=== PATIENT | male | born 1945 | race Caucasian/White ===

== ENCOUNTER 2018-03-14 14:24 | Inpatient (IN) | payer MEDICARE, BC ==
[2018-03-14] VITALS (47 sets, daily range): BP systolic 103–109; BP diastolic 57–66; PULSE 67–109; TEMP 97.8–99.6; O2SAT 93–96
[~2018-03-14] VITALS: Ht 180.3 cm; Wt 125.2 kg
[2018-03-14 15:05] LABS: BASO # 0.1 (0.0-0.2); BASO % 1.2 % (0.0-2.0); GRAN # 6.6 (1.4-6.5); HEMATOCRIT 41.6 % (42.0-52.0); HEMOGLOBIN 13.5 g/dl (13.5-18.0); LYMPH # 0.6 (1.2-3.4); LYMPH % 7.6 % (20.0-51.0); MEAN CELL VOLUME 89 fl (80.0-100.0); MEAN CORPUSCULAR HEMOGLOBIN 29 pg (27.0-31.0); MEAN CORPUSCULAR HGB CONC 33 g/dl (33.0-37.0); MEAN PLATELET VOLUME 12.1 fl (7.4-10.4); MONO # 0.5 (0.1-0.6); MONO % 5.9 % (1.7-9.3); PLATELET COUNT 135 K/mm3 (130-400); RED BLOOD COUNT 4.66 M/mm3 (4.20-5.60); REDCELL DISTRIBUTION WIDTH-CV 14.6 % (11.5-14.5)
[2018-03-14 15:16] LABS: ALBUMIN 3.4 gm/dL (3.5-5.0); BILIRUBIN,TOTAL 1.3 mg/dL (0.0-1.0); CALCIUM 8.4 mg/dL (8.4-10.2); CREATININE, serum 2.37 mg/dL (0.66-1.25); POTASSIUM 4.4 mmol/L (3.4-5.0); TOTAL PROTEIN 6.4 gm/dL (6.4-8.2)
[2018-03-14 15:17] LABS: ARTERIAL BLD GAS O2 SATURATION 94.4 % (92-100); ARTERIAL BLD GAS TCO2 CT 21.3; ARTERIAL BLOOD GAS BASE EXCESS -4.9 (-2-2); ARTERIAL BLOOD GAS HCO3 20.2 meq/L (22-26); ARTERIAL BLOOD GAS PCO2 37.5 mmHg (35-45); ARTERIAL BLOOD GAS PO2 77.6 mmHg (80-100); ARTERIAL BLOOD GAS pH 7.35 (7.35-7.45)
[2018-03-14 15:21] LABS: INR 1.5 (0.8-3.0); PROTHROMBIN TIME 17.1 SECONDS (9.7-12.8)
[2018-03-14 15:29] LABS: TROPONIN-I 0.043 ng/mL (0.000-0.034)
[2018-03-14] MEDS ORDERED: GLUCOTROL XL10 MG PO (15:33)
[2018-03-14] MEDS ORDERED: K-DUR 10 MEQ T10 MEQ PO (15:33)
[2018-03-14] MEDS ORDERED: GLUCOPHAGE1000 MG PO (15:33)
[2018-03-14] MEDS ORDERED: FLOMAX 0.40.4 MG/CAP PO (15:34)
[2018-03-14] MEDS ORDERED: DIOVAN320 MG PO (15:34)
[2018-03-14] MEDS ORDERED: TOPROL XL100 MG PO (15:34)
[2018-03-14] MEDS ORDERED: CRESTOR 10MG10 MG PO (15:34)
[2018-03-14] MEDS ORDERED: METALAZONE (15:35)
[2018-03-14] MEDS ORDERED: MAG64 110 MG-181 ECT (15:36)
[2018-03-14] MEDS ORDERED: PRILOTC (15:36)
[2018-03-14] MEDS ORDERED: ASPIRIN 81M81 MG/TA2 PO (15:36)
[2018-03-14] MEDS ORDERED: NEURONTIN300 MG/CAP PO (15:37)
[2018-03-14] MEDS ORDERED: SINGULAIR 110 MG/TAB PO (15:37)
[2018-03-14] MEDS ORDERED: ADALAT CC60 MG PO (15:37)
[2018-03-14] MEDS ORDERED: TRADJENTA5 MG PO (17:35)
[2018-03-14 19:00] LABS: PARTIAL THROMBOPLASTIN TIME 36.5 SECONDS (26.0-37.0)
[2018-03-14 19:13] LABS: AMORPHOUS CRYSTAL Present /uL; MUCOUS Present /lpf; PH 5 (5-8); SQUAMOUS EPITHELIAL 0-2 /hpf; URINE APPEARANCE Cloudy; URINE BACTERIA None Seen /hpf; URINE BILIRUBIN Negative (NEGATIVE); URINE BLOOD Negative (NEGATIVE); URINE CALCIUM OXALATE CRYSTAL Present /hpf; URINE COLOR Amber; URINE GLUCOSE Negative (NEGATIVE); URINE KETONE Negative (NEGATIVE); URINE LEUKOCYTE ESTERASE Negative (NEGATIVE); URINE NITRATE Negative (NEGATIVE); URINE PROTEIN(semi-quant) 1+ (NEGATIVE); URINE UROBILINOGEN Negative (NEGATIVE)
[2018-03-14 19:30] LABS: COLLECTION METHOD CATHETER
[2018-03-14 19:59] LABS: THYROID STIMULATING HORMONE 3.27 uIU/mL (0.465-4.680)
--- NOTE | 2018-03-14 20:51 | NUR ---
Dr. Fallon at bedside to see patient. Will continue with cardizem at 10mg/hr. Aware of elevated troponin. New order for EKG in am and repeat troponin.
[2018-03-14 20:52] LABS: C-REACTIVE PROTEIN 49.7 mg/dL (0.0-0.9)
--- NOTE | 2018-03-14 20:52 | NUR ---
Hospitalist notified of elevated D-Dimer. On heparin drip. Will just continue to monitor at this time.
--- NOTE | 2018-03-14 23:48 | NUR ---
Spoke with hospitalist regarding central line placement. Will hold off unless patient becomes unstable. Also notified regarding low urine output. Creatinine is elevated. Ordered to just continue to monitor at this time.
[2018-03-15] VITALS (721 sets, daily range): BP systolic 91–113; BP diastolic 59–86; PULSE 58–98; TEMP 98.1–98.8; O2SAT 85–99
--- NOTE | 2018-03-15 02:05 | NUR ---
Bedding under paintient damp and discolored yellow. Crooks appears to be leaking. Baloon emptied and recieved 8 ml. Added 2ml to equal 10 ml. Attempted to re-adjust catheter tubing.
--- NOTE | 2018-03-15 02:40 | NUR ---
VENKATA Amaya from [facility] called regarding Cardizem drip. Decreased cardizem to 5 mg/hr due to occasional heart rate in the 50's and 60's.
--- NOTE | 2018-03-15 02:48 | NUR ---
Updated Dr. Holder regarding low urine output. Intstructed to bladder scan and await morning labs.
--- NOTE | 2018-03-15 03:30 | NUR ---
Bladder scanned; Showed greater than 83 in upper left quadrant. Abdomen soft. Crooks continuing to drain.
[2018-03-15 05:35] LABS: HEMATOCRIT 38.5 % (42.0-52.0); HEMOGLOBIN 12.6 g/dl (13.5-18.0); MEAN CELL VOLUME 90 fl (80.0-100.0); MEAN CORPUSCULAR HEMOGLOBIN 29 pg (27.0-31.0); MEAN CORPUSCULAR HGB CONC 33 g/dl (33.0-37.0); MEAN PLATELET VOLUME 12.6 fl (7.4-10.4); PLATELET COUNT 125 K/mm3 (130-400); RED BLOOD COUNT 4.29 M/mm3 (4.20-5.60); REDCELL DISTRIBUTION WIDTH-CV 14.4 % (11.5-14.5)
[2018-03-15 05:46] LABS: CALCIUM 7.5 mg/dL (8.4-10.2); CREATININE, serum 2.63 mg/dL (0.66-1.25); POTASSIUM 4.7 mmol/L (3.4-5.0)
[2018-03-15 05:49] LABS: HEMOGLOBIN A1C 7.4 %
[2018-03-15 06:10] LABS: LACTIC ACID 2.7 mmol/L (0.4-2.0)
[2018-03-15 06:13] LABS: TROPONIN-I 0.23 ng/mL (0.000-0.034)
[2018-03-15 06:16] LABS: BAND 21 % (0-10); EOSINOPHIL 1 % (0-4); HYPOCHROMIA 1+; LYMPHOCYTE 5 % (20.0-51.0); NEUTROPHILS 68 % (42.0-75.2); OVALOCYTES 1+
[2018-03-15 06:17] LABS: PLATELET ESTIMATE DECREASED (NORMAL)
--- NOTE | 2018-03-15 08:00 | NUR ---
INITIAL ASSESSMENT COMPLETED. PATIENT AWAKE AND ALERT. BIPAP IS CURRENTLY ON AND HE IS TOLERATING WELL. HE WAS GIVEN A DRINK OF WATER, BUT DENIES ANY FURTHER NEEDS AT THIS TIME.
--- NOTE | 2018-03-15 10:28 | NUR ---
Patient taken off bipap and placed on 4l oxymask. Patient is alert, but not oriented. He is unsure of the year and who is president.
--- NOTE | 2018-03-15 11:00 | NUR ---
DR. SANTIAGO HERE TO SEE PATIENT.
--- NOTE | 2018-03-15 11:10 | NUR ---
DR. RILEY HERE TO SEE PATIENT.
--- NOTE | 2018-03-15 11:48 | NUR ---
DR. ROMERO HERE TO SEE PATIENT. STATES HE DOES NOT WANT TO CHANGE IV CARDIZEM SINCE PATIENT IS A MCGREGOR PATIENT. HE WILL LET DR. MCGREGOR ADJUST THINGS TOMORROW.
[2018-03-15 11:50] LABS: ARTERIAL BLD GAS TCO2 CT 21.8; ARTERIAL BLOOD GAS BASE EXCESS -5.7 (-2-2); ARTERIAL BLOOD GAS HCO3 20.5 meq/L (22-26); ARTERIAL BLOOD GAS PCO2 42.8 mmHg (35-45); ARTERIAL BLOOD GAS PO2 105.2 mmHg (80-100)
--- NOTE | 2018-03-15 13:00 | NUR ---
Patient to CT with RT and RN.
--- NOTE | 2018-03-15 16:56 | NUR ---
PATIENT SITTING UP IN BED HAVING CLEAR LIQUIDS AT THIS TIME. AND SON AT BEDSIDE.
--- NOTE | 2018-03-15 19:00 | NUR ---
REPORT GIVEN TO VENKATA ULZ.
--- NOTE | 2018-03-15 21:00 | NUR ---
Bedding noted to be dampened and discolored yellow from catheter leaking. Bedbath provided and linens changed. Patient has PRN medication for bladder spasms. Offered at this time and patient refused. Will continue to monitor for patient discomfort and leakage.
--- NOTE | 2018-03-15 22:55 | NUR ---
Removed mask to administer SL tablet. Applied NC to allow for tablet to dissolve. Re-checked on patient 15 later and o2 remains stable and in no distress. Patient requested to continue with a break from BIPAP for the next 15 minutes and will re-assess.
[2018-03-16] VITALS (732 sets, daily range): BP systolic 108–118; BP diastolic 76–89; PULSE 81–109; TEMP 97.7–98.7; O2SAT 77–100
--- NOTE | 2018-03-16 04:00 | NUR ---
Removed BIPAP and replaced NC for patient comfort. Continues to tolerate NC well; In no respiratory distress and maintaining o2 94-95% on 4L.
[2018-03-16 05:42] LABS: ARTERIAL BLD GAS O2 SATURATION 95.3 % (92-100); ARTERIAL BLOOD GAS BASE EXCESS -5.1 (-2-2); ARTERIAL BLOOD GAS HCO3 20.7 meq/L (22-26); ARTERIAL BLOOD GAS PCO2 41.1 mmHg (35-45); ARTERIAL BLOOD GAS PO2 87.4 mmHg (80-100); ARTERIAL BLOOD GAS pH 7.32 (7.35-7.45)
--- NOTE | 2018-03-16 05:46 | NUR ---
Patient has hep Xa due at 0500. Lab called to request lab draw. science technicians stated she would come down when available.
--- NOTE | 2018-03-16 07:00 | NUR ---
Bedside report received from VENKATA Ardon. Patient awake and alert. No c/o from patient at this time. All drips reviewed together. Will continue to monitor.
--- NOTE | 2018-03-16 07:20 | NUR ---
Bedside report given to VENKATA Fitch. Patient care transfered.
[2018-03-16 08:20] LABS: BASO % 0.2 % (0.0-2.0); GRAN # 6.6 (1.4-6.5); GRAN % 82.5 % (42.2-75.2); HEMATOCRIT 37.5 % (42.0-52.0); HEMOGLOBIN 12.4 g/dl (13.5-18.0); LYMPH # 0.6 (1.2-3.4); MEAN CELL VOLUME 88 fl (80.0-100.0); MEAN CORPUSCULAR HEMOGLOBIN 29 pg (27.0-31.0); MEAN CORPUSCULAR HGB CONC 33 g/dl (33.0-37.0); MEAN PLATELET VOLUME 12.3 fl (7.4-10.4); MONO # 0.8 (0.1-0.6); MONO % 9.3 % (1.7-9.3); PLATELET COUNT 120 K/mm3 (130-400); RED BLOOD COUNT 4.27 M/mm3 (4.20-5.60); REDCELL DISTRIBUTION WIDTH-CV 14.3 % (11.5-14.5)
--- NOTE | 2018-03-16 08:50 | NUR ---
Patient leaves for VQ scan at this time
[2018-03-16 09:02] LABS: CALCIUM 7.3 mg/dL (8.4-10.2); CREATININE, serum 2.48 mg/dL (0.66-1.25); POTASSIUM 4.3 mmol/L (3.4-5.0)
[2018-03-16 09:17] LABS: TROPONIN-I 0.1 ng/mL (0.000-0.034)
--- NOTE | 2018-03-16 10:20 | NUR ---
SW met with the patient to discuss discharge plan. The patient lives in [place], [place] with his , Suly. He was in [place] visiting family. He reports independence with ADLs and does not use any DME. The patient has a PCP is [facility]. The patient does not have advanced directives in EMR and he could not recall if he has them completed. SW did provide the patient with a DPOA-HC form. No identified needs at this time, but SW to continue to follow.
--- NOTE | 2018-03-16 10:30 | NUR ---
Patient returns from Nuclear Medicine.
--- NOTE | 2018-03-16 11:00 | NUR ---
VENKATA Ford here to place PICC line
--- NOTE | 2018-03-16 13:05 | NUR ---
Dr. Nix updated on results from VQ scan and Cardiology's plan for patient. Order received to change patient to IMCU status. Will continue to monitor.
--- NOTE | 2018-03-16 15:15 | NUR ---
Patient up to the recliner this afternoon with visitors at the bedside. He has some c/o bladder spasms, PRN levsin given. He also requests saline nasal spray. Order received from Dr. Nix. PO Cardizem initiated and IV Cardizem discontinued. Heparin gtt continues. Will continue to monitor.
--- NOTE | 2018-03-16 16:01 | NUR ---
Report given to VENKATA Richard
--- NOTE | 2018-03-16 19:20 | NUR ---
Report received from VENKATA Richard. Patient care received.
--- NOTE | 2018-03-16 19:38 | NUR ---
REPORT GIVEN TO NATTY HASTINGS. PATIENT SLEEPING AT THIS TIME
--- NOTE | 2018-03-16 20:58 | NUR ---
O2 noted to be 88-89% on RA. 2L NC placed at this time. 02 increased to mid 90's.
[2018-03-17] VITALS (564 sets, daily range): BP systolic 114–156; BP diastolic 68–93; PULSE 81–115; TEMP 97.5–99.8; O2SAT 82–98
--- NOTE | 2018-03-17 03:03 | NUR ---
Resting in bed with eyes shut; no concerns at this time.
[2018-03-17 05:43] LABS: HEMATOCRIT 38.7 % (42.0-52.0); HEMOGLOBIN 12.9 g/dl (13.5-18.0); MEAN CELL VOLUME 89 fl (80.0-100.0); MEAN CORPUSCULAR HEMOGLOBIN 30 pg (27.0-31.0); MEAN CORPUSCULAR HGB CONC 33 g/dl (33.0-37.0); MEAN PLATELET VOLUME 12.1 fl (7.4-10.4); PLATELET COUNT 129 K/mm3 (130-400); RED BLOOD COUNT 4.37 M/mm3 (4.20-5.60); REDCELL DISTRIBUTION WIDTH-CV 14.3 % (11.5-14.5)
[2018-03-17 05:56] LABS: CALCIUM 7.6 mg/dL (8.4-10.2); CREATININE, serum 2.03 mg/dL (0.66-1.25); POTASSIUM 4.1 mmol/L (3.4-5.0)
--- NOTE | 2018-03-17 07:00 | NUR ---
BEDSIDE REPORT RECEIVED FROM VENKATA LUZ
[2018-03-17 07:11] LABS: BAND 14 % (0-10); LYMPHOCYTE 16 % (20.0-51.0); NEUTROPHILS 61 % (42.0-75.2); PLATELET ESTIMATE DECREASED (NORMAL)
--- NOTE | 2018-03-17 07:38 | NUR ---
Report given to VENKATA Fitch. Patient care transfered.
--- NOTE | 2018-03-17 08:10 | NUR ---
PICC intact right upper arm. With sterile technique right upper arm PICC dressing change done with insertion site cleansed with ChloraPrep 1, gauze removed with no drainage noted, skin prep, StatLock, and Tegaderm applied. Her symptoms of IV complications noted. No concerns voiced. Arm wrapped with Toño to protect catheter.
[2018-03-17 09:29] LABS: ARTERIAL BLOOD GAS BASE EXCESS -2.5 (-2-2); ARTERIAL BLOOD GAS HCO3 23.6 meq/L (22-26); ARTERIAL BLOOD GAS PCO2 45.3 mmHg (35-45); ARTERIAL BLOOD GAS PO2 92.1 mmHg (80-100); ARTERIAL BLOOD GAS pH 7.33 (7.35-7.45)
--- NOTE | 2018-03-17 10:00 | NUR ---
PATIENT UPSET WITH NEWS RECEIVED FROM ROUNDING CASH APPLICATIONS REPRESENTATIVE. HE STATES THAT HE JUST WANTS TO GO HOME. EMOTIONAL SUPPORT GIVEN. WILL CONTINUE TO MONITOR.
--- NOTE | 2018-03-17 12:15 | NUR ---
FAMILY HERE TO SEE PATIENT. DR. RILEY AND DR. MCGREGOR NOTIFIED.
--- NOTE | 2018-03-17 14:46 | NUR ---
REPORT RECEIVED FROM VENKATA CABRERA
--- NOTE | 2018-03-17 14:56 | NUR ---
REPORT CALLED TO VENKATA KAPLAN. PLAN OF CARE DISCUSSED. PATIENT TRANSFERRED TO ROOM 311 WITH NO ISSUE.
--- NOTE | 2018-03-17 15:00 | NUR ---
PATIENT ARRIVED TO RROM 311.SITTING UP IN RECLINER.A/OX3.DENIES PAIN OR DISCOMFORT AT THIS TIME.LSCTA,BILAT BASES DIMINISHED ON AUSCULTATION.OXYGEN AT 2L/NC.PICC TO HECTOR.PATENT.HEPARIN DRIP INFUSING AND ZOSYN INFUSING AT THIS TIME.TELEMETRY SHOWS AFIB WITH RATE OF 90-110 AT THIS TIME.PATIENT AWARE OF PROCEDURE SCHEDULED FOR TOMORROW.NO CONCERNS VOICED AT THIS TIME.WILL CONTINUE TO MONITOR.CALL LIGHT IN REACH
--- NOTE | 2018-03-17 19:14 | NUR ---
PATIENT RESTING IN BED.REPORT GIVEN TO VENKATA FERNANDEZ.HEPARIN INFUSING AT 20.9ML/HR.LAB RECHECK FOR HEPXA AT 1999.NO OTHER NEEDS AT THIS TIME.CALL LIGHT IN REACH
--- NOTE | 2018-03-17 21:11 | NUR ---
Resting in bed. Assessment complete. Denies pain. Left lower lobe crackles otherwise clear. Bilateral lower edema +1. Alert and orientated. Denies needs at this time. Call light in reach. Heparin infusing at 22.4ml/hr into PICC
--- NOTE | 2018-03-17 23:55 | NUR ---
Patient 87-89% oxygen saturation while resting. Refused bipap due to "too loud." Started on O2 at 2 liters via nasal cannula. Now 92%. Respiratory notified. Pt denies needs. Call light in reach.
[2018-03-18] VITALS (16 sets, daily range): BP systolic 137–179; BP diastolic 67–99; PULSE 72–118; TEMP 97.6–98.4
--- NOTE | 2018-03-18 05:50 | NUR ---
Tam from telemetry called stating patient in AFIB RVR in 150's. Resting in bed at this time. Incontinent of bowel care provided, linen changed and up to restroom. Patient pulse remain elevated while up to restroom. Once returned to bed pulse back in 120s. VS taken. AGUEDA Nath notified.-call cardiology. Dr. Mckeon notified. No new orders. Will monitor. Call light in reach.
[2018-03-18 06:01] LABS: HEMATOCRIT 39.7 % (42.0-52.0); MEAN CELL VOLUME 88 fl (80.0-100.0); MEAN CORPUSCULAR HEMOGLOBIN 29 pg (27.0-31.0); MEAN CORPUSCULAR HGB CONC 33 g/dl (33.0-37.0); MEAN PLATELET VOLUME 11.5 fl (7.4-10.4); PLATELET COUNT 140 K/mm3 (130-400); RED BLOOD COUNT 4.51 M/mm3 (4.20-5.60); REDCELL DISTRIBUTION WIDTH-CV 14.4 % (11.5-14.5)
[2018-03-18 06:10] LABS: CALCIUM 7.9 mg/dL (8.4-10.2); CREATININE, serum 1.57 mg/dL (0.66-1.25); MAGNESIUM 1.9 mg/dL (1.6-2.3); POTASSIUM 3.8 mmol/L (3.4-5.0)
--- NOTE | 2018-03-18 06:24 | NUR ---
Resting in bed at this time. Afib rate currently 110s. Call light in reach. Will continue to monitor.
[2018-03-18 07:37] LABS: BAND 13 % (0-10); LYMPHOCYTE 9 % (20.0-51.0); NEUTROPHILS 67 % (42.0-75.2); PLATELET ESTIMATE DECREASED (NORMAL)
--- NOTE | 2018-03-18 07:50 | NUR ---
Assessment complete. Pt is drowsy but arrousable to voice. Denies having any pain at this time. Breathing is even and unlabored on 2L via NC. Tele on. R upper arm PICC has good blood return, flushes easily, remains free of complications, and is CDI. Pt is NPO for procedure today. Family members are at the bedside; all questions answered. Crooks is draining cloudy, yellow urine and it is free of complications. Heparin drip infusing. Procedure team at the bedside to take pt.
--- NOTE | 2018-03-18 08:06 | NUR ---
Pt left the floor at this time for procedure.
--- NOTE | 2018-03-18 13:00 | NUR ---
First visit from the agricultural scientist. No needs right now.
--- NOTE | 2018-03-18 18:42 | NUR ---
Pt had heart cath today. R radial site is CDI and has remained free of complications. Crooks removed per protocol. Has had one output post removal. Pt's family has remained at the bedside; all questions answered. Pt is sitting up in the bed watching TV at this time and he denies further needs. Call light within reach.
--- NOTE | 2018-03-18 20:27 | NUR ---
Pt in bed resting watching TV, shift assessments complete, left Pt bed in lowest position, call light in reach.
[2018-03-19] VITALS (7 sets, daily range): BP systolic 155–186; BP diastolic 72–81; PULSE 72–87; TEMP 97.4–98.9
--- NOTE | 2018-03-19 05:24 | NUR ---
Pt slept during the nighthe kept the bed in mid fowlers, breathing slightly labored at rest, sats remained good on the supplemental O2, no C/O pain, VS remained stable.
[2018-03-19 06:06] LABS: HEMATOCRIT 38.8 % (42.0-52.0); HEMOGLOBIN 12.5 g/dl (13.5-18.0); MEAN CELL VOLUME 90 fl (80.0-100.0); MEAN CORPUSCULAR HEMOGLOBIN 29 pg (27.0-31.0); MEAN CORPUSCULAR HGB CONC 32 g/dl (33.0-37.0); MEAN PLATELET VOLUME 11.7 fl (7.4-10.4); PLATELET COUNT 138 K/mm3 (130-400); RED BLOOD COUNT 4.33 M/mm3 (4.20-5.60); REDCELL DISTRIBUTION WIDTH-CV 14.5 % (11.5-14.5)
[2018-03-19 06:18] LABS: CREATININE, serum 1.42 mg/dL (0.66-1.25); POTASSIUM 3.6 mmol/L (3.4-5.0)
[2018-03-19 06:40] LABS: BAND 7 % (0-10); LYMPHOCYTE 9 % (20.0-51.0); NEUTROPHILS 75 % (42.0-75.2)
[2018-03-19 06:41] LABS: HYPOCHROMIA 1+; PLATELET ESTIMATE DECREASED (NORMAL)
--- NOTE | 2018-03-19 08:45 | NUR ---
Assessment complete. Pt is AXO X3, denies having any pain at this time. Breathing is even and unlabored on 2L via NC. Tele on. R upper arm PICC has good blood return, flushes easily, remains free of complications, and is CDI. Pt is sitting up in the chair looking at the menu at this time and he denies further needs. Call light within reach, will continue to monitor.
[2018-03-19 13:46] LABS: MUCOUS Present /lpf; PH 6 (5-8); SQUAMOUS EPITHELIAL None Seen /hpf; URINE APPEARANCE Hazy; URINE BACTERIA None Seen /hpf; URINE BILIRUBIN Negative (NEGATIVE); URINE BLOOD 2+ (NEGATIVE); URINE COLOR Straw; URINE GLUCOSE Negative (NEGATIVE); URINE KETONE Negative (NEGATIVE); URINE LEUKOCYTE ESTERASE Negative (NEGATIVE); URINE NITRATE Negative (NEGATIVE); URINE PROTEIN(semi-quant) 1+ (NEGATIVE); URINE RBC 20-50 /hpf; URINE UROBILINOGEN Negative (NEGATIVE)
[2018-03-19 13:55] LABS: COLLECTION METHOD CLEAN CATCH
--- NOTE | 2018-03-19 16:10 | NUR ---
Katelyn has been working on portable concentrator with battery pack. & companies screened and declined due to interstate travel with portable, not in area. Comp willing to provide tank, without mutli tanks, client will not be able to transport due to [address] KATELYN will continues to follow.
--- NOTE | 2018-03-19 18:04 | NUR ---
Pr has been resting on and off throughout the day. He has remained free of pain. Pt's has been at the bedside; all questions answered. Pt is sitting up in the bed eating his dinner at this time and he denies further needs. Call light within reach.
--- NOTE | 2018-03-19 19:00 | NUR ---
Report given to EVNKATA Spencer.
--- NOTE | 2018-03-19 20:52 | NUR ---
PT RESTIN IN BED. REPORTS NO PAIN. SHIFT ASSESSMENT COMPLETE. TELE ON . REPORTS NO NEEDS CALL LIGHT IN [facility]
--- NOTE | 2018-03-19 23:48 | NUR ---
pt removed O2, this nurse put NC back on. pt sounds congested.
[2018-03-20] VITALS (299 sets, daily range): BP systolic 126–165; BP diastolic 92–106; PULSE 113–128; TEMP 97.9–98.2; O2SAT 85–100
--- NOTE | 2018-03-20 05:27 | NUR ---
tele called, pt is in AFIB with RVR. EKG confirmed. this nurse assessed vitals, pt reports no symtoms. called Pham ROMEO and Dr. Fallon. Vasyl transfered pt to ICU, to initiate amiodarone.
[2018-03-20 06:55] LABS: HEMATOCRIT 39.1 % (42.0-52.0); HEMOGLOBIN 12.6 g/dl (13.5-18.0); MEAN CELL VOLUME 90 fl (80.0-100.0); MEAN CORPUSCULAR HEMOGLOBIN 29 pg (27.0-31.0); MEAN CORPUSCULAR HGB CONC 32 g/dl (33.0-37.0); MEAN PLATELET VOLUME 11.1 fl (7.4-10.4); PLATELET COUNT 181 K/mm3 (130-400); RED BLOOD COUNT 4.37 M/mm3 (4.20-5.60); REDCELL DISTRIBUTION WIDTH-CV 14.6 % (11.5-14.5)
[2018-03-20 07:05] LABS: CREATININE, serum 1.42 mg/dL (0.66-1.25); POTASSIUM 3.3 mmol/L (3.4-5.0)
--- NOTE | 2018-03-20 13:03 | NUR ---
SW continued to screen for travel O2. Unsucessful, all companies require initial O2 tank setup and a minimum of 21 days before a portal 02 with battery pack can be issued. Due to drive it is not recommended for tanks.
--- NOTE | 2018-03-20 20:00 | NUR ---
Shift assessment complete at this time. Patient resting in bed watching TV. No complaints of pain or discomfort. Only request is some more ice water, to be provided. Patient is unable to correctly answer the month or year, but was only off by one for each. Patient does not appear confused. Patient has no other needs at this time. Will continue to monitor. Call light within reach.
--- NOTE | 2018-03-20 20:05 | NUR ---
Bedside report received from VENKATA Richard.
--- NOTE | 2018-03-20 20:10 | NUR ---
Bedside report given to Kirstie HASTINGS. Patient awake in bed, participates in report
[2018-03-21] VITALS (670 sets, daily range): BP systolic 148–175; BP diastolic 83–96; PULSE 68–106; TEMP 97.5–98.7; O2SAT 84–100
--- NOTE | 2018-03-21 | NUR ---
Patient sleeping at this time, but is easily arousable. No current requests at this time. Patient remains in afib, other VSS. Will continue to monitor. Call light within reach.
--- NOTE | 2018-03-21 04:00 | NUR ---
Patient asleep at this time. No current needs. No complaints of pain. Repositioned for comfort. No further needs at this time. Will continue to monitor. Call light within reach.
[2018-03-21 06:00] LABS: HEMATOCRIT 39.7 % (42.0-52.0); HEMOGLOBIN 12.8 g/dl (13.5-18.0); MEAN CELL VOLUME 90 fl (80.0-100.0); MEAN CORPUSCULAR HEMOGLOBIN 29 pg (27.0-31.0); MEAN CORPUSCULAR HGB CONC 32 g/dl (33.0-37.0); MEAN PLATELET VOLUME 10.9 fl (7.4-10.4); PLATELET COUNT 212 K/mm3 (130-400); RED BLOOD COUNT 4.43 M/mm3 (4.20-5.60); REDCELL DISTRIBUTION WIDTH-CV 14.4 % (11.5-14.5)
[2018-03-21 06:36] LABS: CALCIUM 7.9 mg/dL (8.4-10.2); CREATININE, serum 1.34 mg/dL (0.66-1.25); POTASSIUM 3.3 mmol/L (3.4-5.0)
--- NOTE | 2018-03-21 07:07 | NUR ---
Bedside report received from VENKATA Thacker.
--- NOTE | 2018-03-21 07:10 | NUR ---
Bedside report given to VENKATA Sorto. Transfer of care at this time.
[2018-03-21 08:16] LABS: BAND 6 % (0-10); EOSINOPHIL 1 % (0-4); LYMPHOCYTE 13 % (20.0-51.0); NEUTROPHILS 76 % (42.0-75.2); PLATELET ESTIMATE NORMAL (NORMAL)
--- NOTE | 2018-03-21 08:20 | NUR ---
PT in working with patient.
--- NOTE | 2018-03-21 08:45 | NUR ---
PICC intact right upper arm. With sterile technique right upper arm PICC dressing change done with insertion site cleansed with ChloraPrep 1, skin prep, StatLock, and Tegaderm applied. red port flushed with 20 mL normal saline with good blood return noted. no signs or symptoms of IV complications noted. No concerns voiced. Arm wrapped with Toño to protect catheter.
--- NOTE | 2018-03-21 10:30 | NUR ---
Patient incontinent of urine and bowel, patient cleaned up, total bed change, assisted to chair, at bedside.
--- NOTE | 2018-03-21 10:43 | NUR ---
OT here to work with patient.
--- NOTE | 2018-03-21 13:21 | NUR ---
Anesthesia called back, they will be available at 1430 for cardioversion.
--- NOTE | 2018-03-21 14:22 | NUR ---
Follow up visit from the manager enterprise. No needs right now.
--- NOTE | 2018-03-21 14:30 | NUR ---
Dr. Fallon and Rebecca Mcknight, PRESENTATION DESIGNER here for cardioversion. Patient cardioverted with 200 joules. Tolerated procedure well.
--- NOTE | 2018-03-21 17:46 | NUR ---
Bedside report given to VENKATA Ledbetter.
[2018-03-22] VITALS (359 sets, daily range): BP systolic 139–180; BP diastolic 59–92; PULSE 50–72; TEMP 97.7–98.8; O2SAT 70–100
[2018-03-22 06:05] LABS: HEMATOCRIT 38.5 % (42.0-52.0); HEMOGLOBIN 12.4 g/dl (13.5-18.0); MEAN CELL VOLUME 90 fl (80.0-100.0); MEAN CORPUSCULAR HEMOGLOBIN 29 pg (27.0-31.0); MEAN CORPUSCULAR HGB CONC 32 g/dl (33.0-37.0); MEAN PLATELET VOLUME 11.3 fl (7.4-10.4); PLATELET COUNT 195 K/mm3 (130-400); RED BLOOD COUNT 4.28 M/mm3 (4.20-5.60); REDCELL DISTRIBUTION WIDTH-CV 14.2 % (11.5-14.5)
[2018-03-22 06:21] LABS: CALCIUM 7.8 mg/dL (8.4-10.2); CREATININE, serum 1.41 mg/dL (0.66-1.25); MAGNESIUM 1.7 mg/dL (1.6-2.3)
--- NOTE | 2018-03-22 07:15 | NUR ---
Bedside report received from VENKATA Ledbetter. Patient awake and alert. Plan of care discussed. Care assumed.
--- NOTE | 2018-03-22 09:00 | NUR ---
PATIENT IS UP TO TOILET WITH LOOSE STOOLS. HE IS INCONTINENT OF LOOSE STOOL. WILL REPORT THIS TO DR. BEYER WHEN HE ROUNDS ON THE PATIENT. PATIENT HAS NO OTHER C/O AT THIS TIME. HE IS TOLERATING ROOM AIR. WILL CONTINUE TO MONITOR
[2018-03-22 10:12] LABS: BAND 2 % (0-10); EOSINOPHIL 1 % (0-4); LYMPHOCYTE 11 % (20.0-51.0); NEUTROPHILS 80 % (42.0-75.2)
[2018-03-22 10:13] LABS: PLATELET ESTIMATE NORMAL (NORMAL)
--- NOTE | 2018-03-22 12:00 | NUR ---
PATIENT HAS NO APPETITE. HE IS ENCOURAGED TO ORDER SOME FOOD FROM THE KITCHEN. HE REFUSES. I GET HIM TO AGREE TO DRINK A GLUCERNA SHAKE AT THIS TIME.
--- NOTE | 2018-03-22 15:00 | NUR ---
DR. BEYER CALLED REGARDING PERSISTENTLY HIGH BLOOD PRESSURES. PRN ORDER FOR HYDRALAZINE PO RECEIVED. WILL ADMINISTER FOR ELEVATED BP. OTHERWISE, PATIENT IS STABLE, HE HAS NO COMPLAINTS. LOOSE STOOLS HAVE SLOWED DOWN. LAB RESULTS SHOW STOOL IS NEGATIVE FOR C-DIFF. WILL CONTINUE TO MONITOR
--- NOTE | 2018-03-22 16:30 | NUR ---
UPDATE GIVEN TO DR. LOPEZ.
--- NOTE | 2018-03-22 17:52 | NUR ---
REPORT CALLED TO VENKATA GRIMALDO ON SURGICAL FLOOR. PATIENT WILL BE TAKEN TO ROOM 324
--- NOTE | 2018-03-22 20:00 | NUR ---
Assessment completed. Patient is A&O x 4. VSS, currently on room air. Tele maintained. Denies any shortness of breath or pain. Up with standby assist with a steady gait. Voiding with no difficulities. Patient did have a small loose bowel movement this evening. Denies any nausea. HECTOR PICC line flushes well with good blood return, IVF infusing per orders. Denies any concerns or needs. Bed is in a low position with call light in reach.
[2018-03-23] VITALS (9 sets, daily range): BP systolic 159–180; BP diastolic 67–83; PULSE 61–72; TEMP 97.4–99.1
--- NOTE | 2018-03-23 04:59 | NUR ---
Patient has rested intermittently through the night. PO Hydralazine given early this morning for elevated blood pressure. Has remained on room air through the night. Continues to deny any pain or shortness of breath. Did have two small loose bowel movements through the night. Denies any concerns or needs this morning, call light within reach.
[2018-03-23 06:02] LABS: HEMATOCRIT 37.6 % (42.0-52.0); HEMOGLOBIN 12.3 g/dl (13.5-18.0); MEAN CELL VOLUME 89 fl (80.0-100.0); MEAN CORPUSCULAR HEMOGLOBIN 29 pg (27.0-31.0); MEAN CORPUSCULAR HGB CONC 33 g/dl (33.0-37.0); MEAN PLATELET VOLUME 11.2 fl (7.4-10.4); PLATELET COUNT 236 K/mm3 (130-400); RED BLOOD COUNT 4.25 M/mm3 (4.20-5.60); REDCELL DISTRIBUTION WIDTH-CV 14.1 % (11.5-14.5)
[2018-03-23 06:11] LABS: CALCIUM 7.5 mg/dL (8.4-10.2); CREATININE, serum 1.28 mg/dL (0.66-1.25); MAGNESIUM 2.1 mg/dL (1.6-2.3); POTASSIUM 3.2 mmol/L (3.4-5.0)
[2018-03-23 06:58] LABS: BAND 7 % (0-10); EOSINOPHIL 1 % (0-4); LYMPHOCYTE 15 % (20.0-51.0); NEUTROPHILS 71 % (42.0-75.2)
[2018-03-23 07:00] LABS: PLATELET ESTIMATE NORMAL (NORMAL)
--- NOTE | 2018-03-23 08:00 | NUR ---
PATIENT IS UP TO THE CHAIR THIS MORNING. PATIENT IS A&O. BLOOD PRESSURE ELEVATED, OTHERWISE VSS. TELE IN PLACE. PATIENT GIVEN PRN DOSE OF APRESOLINE FOR BLOOD PRESSURE OF 172/76. BOWEL SOUNDS ACTIVE ALL FOUR QUADRANTS. UMBILICAL HERNIA NOTED. PATIENT REFUSED BREAKFAST. PATIENT HAD MILK WITH HIS INSULIN INJECTION. UPPER LUNG LOBES BILATERALLY CLEAR UPON AUSCULTATION. RIGHT MIDDLE AND LOWER LUNG LOBES DIMINISHED UPON AUSCULTATION. LEFT LOWER LUNG LOBE COARSE UPON AUSCULTATION. PATIENT DENIES A PRODUCTIVE COUGH OR SHORTNESS OF BREATH. PATIENT 02 SATS GOOD ON ROOM AIR. PATIENT DENIES ANY COMPLAINTS OF N/V OR PAIN. POSITIVE PEDAL PULSES EQUAL BILATERALLY. 3+ PITTING-EDEMA TO BLE NOTED. NON-PITTING EDEMA TO BUE. PICC LINE TO RUE. CALL LIGHT WITHIN REACH. PATIENT DENIES ANY OTHER NEEDS AT THIS TIME.
--- NOTE | 2018-03-23 09:12 | NUR ---
PATIENT GIVEN LASIX [address] MCGREGOR ORDERS.
--- NOTE | 2018-03-23 10:18 | NUR ---
PATIENT CONSENT FOR THORACENTESIS SIGNED AND ON PATIENT CHART.
--- NOTE | 2018-03-23 11:10 | NUR ---
RE-CHECKED VITALS AFTER GIVING PATIENT PRN DOSE OF HYDRALAZINE. BP:172/68, P:61, R:22, T:97.4, O2: 93% ON ROOM AIR. PATIENT WAS JUST UP TO VOID & HAD SCAN FOR THORACENTESIS.
--- NOTE | 2018-03-23 13:09 | NUR ---
PATIENT GIVEN 1 TABLET OF PRN DOSE OF APRESOLINE FOR BP:171/76, P:66, R:16, T:97.8, 02:93% ON ROOM AIR. WILL RE-CHECK BP.
--- NOTE | 2018-03-23 14:33 | NUR ---
BLOOD PRESSURE RE-CHECKED AFTER PRN DOSE OF APRESOLINE. BLOOD PRESSURE CAME DOWN TO 166/67. WILL CONTINUE TO MONITOR.
--- NOTE | 2018-03-23 16:32 | NUR ---
PATIENT TAKEN FOR A THORACENTESIS VIA WHEELCHAIR. WILL WAIT FOR PATIENT TO RETURN BACK TO ROOM 324.
--- NOTE | 2018-03-23 17:15 | NUR ---
PATIENT ARRIVED BACK TO ROOM 324 VIA WHEELCHAIR FROM HIS THORACENTESIS.
--- NOTE | 2018-03-23 19:58 | NUR ---
PATIENT TRANSFERRED TO MEDICAL ROOM 317. REPORT GIVEN TO EVNKATA SANTOS.
--- NOTE | 2018-03-23 20:20 | NUR ---
Pt transferred from surgical unit. Shift assessment complete. Pt resting in bed, awake, a&o, cooperative c cares. Pt denies pain or other c/o at this time. PICC noted to R upper arm, patent c good blood return. Pt denies needs. Call light in reach, will monitor.
[2018-03-24] VITALS (7 sets, daily range): BP systolic 161–179; BP diastolic 54–89; PULSE 63–68; TEMP 97.3–98.4
[2018-03-24 06:08] LABS: HEMATOCRIT 38.3 % (42.0-52.0); HEMOGLOBIN 12.5 g/dl (13.5-18.0); MEAN CELL VOLUME 88 fl (80.0-100.0); MEAN CORPUSCULAR HEMOGLOBIN 29 pg (27.0-31.0); MEAN CORPUSCULAR HGB CONC 33 g/dl (33.0-37.0); MEAN PLATELET VOLUME 11.1 fl (7.4-10.4); PLATELET COUNT 229 K/mm3 (130-400); RED BLOOD COUNT 4.37 M/mm3 (4.20-5.60)
[2018-03-24 06:21] LABS: CALCIUM 7.7 mg/dL (8.4-10.2); CREATININE, serum 1.35 mg/dL (0.66-1.25); POTASSIUM 3.5 mmol/L (3.4-5.0)
[2018-03-24 06:45] LABS: ANISOCYTOSIS 1+; LYMPHOCYTE 12 % (20.0-51.0); MYELOCYTE 1 % (0-0); NEUTROPHILS 85 % (42.0-75.2); PLATELET ESTIMATE NORMAL (NORMAL)
--- NOTE | 2018-03-24 08:25 | NUR ---
RA SPO2 ASLEEP 85%. PLACED ON ONE LPM NC 91%
--- NOTE | 2018-03-24 10:33 | NUR ---
Initial visit; Bernardo thanked Casino Accountant for looking in on him and offering encouragement and God's blessings
--- NOTE | 2018-03-24 21:40 | NUR ---
PT RESTING IN BED A+OX4. NO PAIN. NO SOA. 2+ SWELLING IN BILATERAL LOWER EXTREMITIES. REPORTS NO NEEDS AT THIS TIME. SHIFT ASSESSMENT COMPLETE. CALL LIGHT IN REACH
--- NOTE | 2018-03-24 21:49 | NUR ---
PT BP 179/82, hydralazine given. will continue to monitor
[2018-03-25] VITALS (15 sets, daily range): BP systolic 133–175; BP diastolic 57–88; PULSE 57–96; TEMP 64.3–973
--- NOTE | 2018-03-25 02:18 | NUR ---
tele called pt had 30-40 sec of bradycardia in the 30s. assessed vitals, stable. ekg ordered, NS gave hydralazine for bp of 173/78. will continue to monitor.
--- NOTE | 2018-03-25 03:30 | NUR ---
PT HAS RED BLOTCHING ON LLE. BILATERAL LOWER EX SWELLING
[2018-03-25 06:19] LABS: MEAN CELL VOLUME 89 fl (80.0-100.0); MEAN CORPUSCULAR HEMOGLOBIN 29 pg (27.0-31.0); MEAN CORPUSCULAR HGB CONC 33 g/dl (33.0-37.0); MEAN PLATELET VOLUME 11.3 fl (7.4-10.4); PLATELET COUNT 223 K/mm3 (130-400); RED BLOOD COUNT 4.16 M/mm3 (4.20-5.60)
[2018-03-25 06:31] LABS: CALCIUM 7.7 mg/dL (8.4-10.2); CREATININE, serum 1.49 mg/dL (0.66-1.25); POTASSIUM 3.6 mmol/L (3.4-5.0)
[2018-03-25 06:38] LABS: HEMATOCRIT 36.9 % (42.0-52.0)
--- NOTE | 2018-03-25 07:06 | NUR ---
pt had two episodes of bradycardia. EKG ordered first time, NS. pt slept throughout night. no needs at this time. report given to Clarisse HASTINGS
--- NOTE | 2018-03-25 07:32 | NUR ---
report from Portia HASTINGS.
--- NOTE | 2018-03-25 08:14 | NUR ---
insulin held for surgery.
--- NOTE | 2018-03-25 10:09 | NUR ---
PT UP TO BR INDEPENDENTLY, RETURNED TO RECLINER. AM MEDS GIVEN. IN TO SPEAK WITH PATIENT AND FAMILY. DR. MCGREGOR IN TO SEE PT THIS AM. HOSPITALIST AND WAREHOUSE CHECKER MADE AWARE THAT DR. MCGREGOR WOULD LIKE PT TO GO TO ICU AFTER PROCEEDURE TODAY. FAMILY AND PT AWARE.
--- NOTE | 2018-03-25 10:22 | NUR ---
SW attended clinical rounds. Surgery is to place a chest tube today, 03/25. SAMI followed up with the patient and the patient's family. The patient's family report that the plan is for the patient to still return back home to [place] upon discharge. SW to continue to follow.
--- NOTE | 2018-03-25 11:39 | NUR ---
PATIENT LEFT FOR CHEST TUBE PLACEMENT WITH WEN PER BED@ 1110
--- NOTE | 2018-03-25 14:33 | NUR ---
pt returned from surgery per bed with report from esteban HASTINGS PACU@ 2230. pt is drowsey but arousable. chest tube to 20 cm water seal. dressing to left side of chest cdi with gauze and medipore tape over drain site. IV to picc line. po pain meds given as ordered.
--- NOTE | 2018-03-25 19:26 | NUR ---
Report received from VENKATA Pagan. Pt resting in bed comfortably alert and oriented. Pt rated his pain 3/10 and agreed to take pain med every 4 hours tonight to control the pain. Call light in reach.
--- NOTE | 2018-03-25 20:37 | NUR ---
Pt resting in bed comfortably. Call light in reach. Pt agreed to take pain med when it's due to take pain under control.
--- NOTE | 2018-03-25 22:17 | NUR ---
Pt agreed to take pain med before bedtime. Call light in reach.
--- NOTE | 2018-03-26 00:13 | NUR ---
Visit attempted and pt sleeping soundly in bed. Call light in reach.
--- NOTE | 2018-03-26 02:46 | NUR ---
Visit attempted and pt sleeping soundly in bed. Call light in reach.
[2018-03-26 03:20] VITALS: BP 143/65; PULSE 67; TEMP 97.4
--- NOTE | 2018-03-26 05:37 | NUR ---
Pt awake and c/o soreness around chest tube site. Pt agreed to take pain med. Call light in reach.
[2018-03-26 05:59] LABS: BASO % 0.4 % (0.0-2.0); EOS # 0.2 (0.0-0.7); EOS % 1.6 % (0-4.0); GRAN # 6.7 (1.4-6.5); GRAN % 73.5 % (42.2-75.2); HEMATOCRIT 37.6 % (42.0-52.0); LYMPH # 1.4 (1.2-3.4); LYMPH % 14.8 % (20.0-51.0); MEAN CELL VOLUME 90 fl (80.0-100.0); MEAN CORPUSCULAR HEMOGLOBIN 29 pg (27.0-31.0); MEAN CORPUSCULAR HGB CONC 32 g/dl (33.0-37.0); MEAN PLATELET VOLUME 10.8 fl (7.4-10.4); MONO # 0.8 (0.1-0.6); MONO % 8.7 % (1.7-9.3); PLATELET COUNT 228 K/mm3 (130-400); RED BLOOD COUNT 4.18 M/mm3 (4.20-5.60); REDCELL DISTRIBUTION WIDTH-CV 14.2 % (11.5-14.5)
[2018-03-26 06:13] LABS: CALCIUM 7.8 mg/dL (8.4-10.2); CREATININE, serum 1.42 mg/dL (0.66-1.25)
--- NOTE | 2018-03-26 06:14 | NUR ---
Pt resting in bed comfortably. Call light in reach.
[2018-03-26 08:34] VITALS: BP 140/72; PULSE 72; TEMP 98.6
--- NOTE | 2018-03-26 09:45 | NUR ---
PATIENT UP IN CHAIR. HE DENIES ANY PAIN OR NEEDS AT THIS TIME. CHEST TUBE INTACT.
[2018-03-26 12:54] VITALS: BP 144/70; PULSE 68; TEMP 99
[2018-03-26 15:42] VITALS: BP 132/53; PULSE 73; TEMP 97.6
--- NOTE | 2018-03-26 17:00 | NUR ---
PATIENT CHEST TUBE TO WATER SEAL. SUCTION IS TURNED OFF AND LEFT HOOKED UP TO THE SUCTION TUBING. I AM NOT ABLE TO FIND A CAP TO PUT ON THE CHEST TUBE BOX. SAFETY FIRE BOSS NINO AWARE OF THIS
[2018-03-26 20:00] VITALS: BP 151/57; PULSE 73; TEMP 99.6
[2018-03-26 23:40] VITALS: BP 151/67; PULSE 71; TEMP 97.7
--- NOTE | 2018-03-27 02:30 | NUR ---
Pt in bed watching TV, some C/O pain, shift assessments complete, left Pt call light in reach, bed in lowest position.
[2018-03-27 03:40] VITALS: BP 142/61; PULSE 69; TEMP 97.9
--- NOTE | 2018-03-27 05:34 | NUR ---
Pt slept some during the night, he had some C/O pain during the night and was given PRN pain medication, he was able to sleep better after the medication was given. There has been very little drainage from the chest tube overnight, checked all connections and they are connected. Pt has been voiding well. VS stable.
[2018-03-27 05:37] LABS: BASO % 0.4 % (0.0-2.0); EOS # 0.2 (0.0-0.7); EOS % 1.5 % (0-4.0); GRAN # 7.8 (1.4-6.5); GRAN % 74.9 % (42.2-75.2); HEMOGLOBIN 11.5 g/dl (13.5-18.0); LYMPH # 1.5 (1.2-3.4); LYMPH % 14.1 % (20.0-51.0); MEAN CELL VOLUME 92 fl (80.0-100.0); MEAN CORPUSCULAR HEMOGLOBIN 29 pg (27.0-31.0); MEAN CORPUSCULAR HGB CONC 31 g/dl (33.0-37.0); MEAN PLATELET VOLUME 11.1 fl (7.4-10.4); MONO # 0.8 (0.1-0.6); PLATELET COUNT 208 K/mm3 (130-400); RED BLOOD COUNT 4.01 M/mm3 (4.20-5.60)
[2018-03-27 05:38] LABS: HEMATOCRIT 36.8 % (42.0-52.0)
[2018-03-27 05:45] LABS: CREATININE, serum 1.44 mg/dL (0.66-1.25); POTASSIUM 4.1 mmol/L (3.4-5.0)
[2018-03-27 07:28] VITALS: BP 148/74; PULSE 71; TEMP 98.6
--- NOTE | 2018-03-27 08:31 | NUR ---
PATIENT ASSESSMENT COMPLETED. UP TO CHAIR FOR BREAKFAST. CHEST TUBE INTACT TO LEFT CHEST, HE HAD NO OUTPUT THE LAST 12 HOURS.COMPLAINS OF GENERAL PAINS AND PRN PAIN MEDICATION PROVIDED HE TOLERATES WELL GETING TO THE STANDING POSITION TO VOID AT THE CHAIR ON HIS OWN WITHOUT SHORTNESS OF BREATH. HE WALKS TO THE BATHROOM WITH STANDBY ASSIST WITH OUT DIFFICULTY.O2 AT 3L VIA NASAL CANNULA. I WAS ABLE TO FLUSH THE RED PORT THIS MORNING ON THE PICC NOT ABLE TO FLUSH THE PURPLE.
[2018-03-27 12:08] VITALS: BP 143/68; PULSE 70; TEMP 98.4
--- NOTE | 2018-03-27 13:25 | NUR ---
PATIENT IS EASILY ARROUSED IN BED WITH FAMILY AT BEDSIDE. WATER REFILLED AND NO OTHER NEEDS. LUNCH ORDERED.
[2018-03-27 16:14] VITALS: BP 140/60; PULSE 71; TEMP 98.4
[2018-03-27 19:58] VITALS: BP 139/59; PULSE 66; TEMP 98
--- NOTE | 2018-03-27 20:30 | NUR ---
Initial shift assessment done- states pain to chest tube site 06/29-- will give Percocet as ordered, left chest tube to suction- no drainage noted- dressing dry and intact- no crepitus noted, Tele on,o2 at 3L/nc, denies SOB.
[2018-03-28 00:56] VITALS: BP 129/54; PULSE 65; TEMP 97.4
[2018-03-28 04:01] VITALS: BP 142/57; PULSE 66; TEMP 97.5
--- NOTE | 2018-03-28 05:16 | NUR ---
Quiet night-- medicated with [place] twice during the night for pain to left chest, Left chest tube with approx 15cc out during this shift. Up to bathroom during the night x2 with assist- steady on feet.
[2018-03-28 07:04] VITALS: BP 151/72; PULSE 71; TEMP 98.5
[2018-03-28 07:54] LABS: BASO % 0.4 % (0.0-2.0); EOS # 0.1 (0.0-0.7); EOS % 1.4 % (0-4.0); GRAN % 73.3 % (42.2-75.2); HEMOGLOBIN 11.3 g/dl (13.5-18.0); LYMPH # 1.4 (1.2-3.4); LYMPH % 14.9 % (20.0-51.0); MEAN CELL VOLUME 92 fl (80.0-100.0); MEAN CORPUSCULAR HEMOGLOBIN 29 pg (27.0-31.0); MEAN CORPUSCULAR HGB CONC 31 g/dl (33.0-37.0); MEAN PLATELET VOLUME 12.3 fl (7.4-10.4); MONO # 0.9 (0.1-0.6); MONO % 8.9 % (1.7-9.3); PLATELET COUNT 240 K/mm3 (130-400); RED BLOOD COUNT 3.96 M/mm3 (4.20-5.60); REDCELL DISTRIBUTION WIDTH-CV 14.2 % (11.5-14.5)
[2018-03-28 07:55] LABS: HEMATOCRIT 36.3 % (42.0-52.0)
[2018-03-28 07:57] LABS: CALCIUM 7.9 mg/dL (8.4-10.2); CREATININE, serum 1.31 mg/dL (0.66-1.25)
--- NOTE | 2018-03-28 08:10 | NUR ---
Patient is alert and oriented, assisted to sit in the chair. Denies any pain. 20cm suction applied to chest tube, seal checked and intact. Voiding adequately and reports passing gas. VSS. Call light within reach and will continue to monitor.
[2018-03-28 10:47] VITALS: BP 128/63; BP 147/69; PULSE 71; PULSE 74; TEMP 98.1; TEMP 98.4
--- NOTE | 2018-03-28 11:00 | NUR ---
PICC intact right upper arm with sterile dressing change done with insertion site cleansed with chloraprep x 1, skin prep, stat lock, and tegaderm applied. no signs or symptoms of IV complications noted. both ports flushed with 10ml normal saline with good blood return noted. re-wrapped with ruby to protect catheter.
--- NOTE | 2018-03-28 14:25 | NUR ---
[facility] reviewed. The patient is not a candidate.
[2018-03-28 15:20] VITALS: BP 143/62; PULSE 72; TEMP 98.7
--- NOTE | 2018-03-28 17:23 | NUR ---
Patient has been up to the chair TID throughout the day. Reports pain is controlled with PRN medication. PICC flushes well with blood return. Patient voiding adequately. Denies SOB, remains on 3L of O2. Chest tube remains to suction, supplies at bedside for Dr. Frost to repostion tonight. Tele monitoring. Call light within reach and will give report to decorating equipment setter RN.
[2018-03-28 19:15] VITALS: BP 161/63; PULSE 74; TEMP 97.4
--- NOTE | 2018-03-28 20:20 | NUR ---
Pt sitting up in recliner watching TV, no C/O unusual pain, shift assessments complete, left Pt call light in reach.
[2018-03-29 00:18] VITALS: BP 167/69; PULSE 71; TEMP 98.4
[2018-03-29 04:33] VITALS: BP 118/64; PULSE 79; TEMP 98
--- NOTE | 2018-03-29 05:37 | NUR ---
Pt slept some during the night, some C/O pain medications relieved, VS have been stable.
[2018-03-29 06:07] LABS: BASO # 0.1 (0.0-0.2); BASO % 0.7 % (0.0-2.0); EOS # 0.2 (0.0-0.7); EOS % 2.5 % (0-4.0); GRAN # 4.9 (1.4-6.5); GRAN % 66.4 % (42.2-75.2); HEMOGLOBIN 10.6 g/dl (13.5-18.0); LYMPH # 1.4 (1.2-3.4); LYMPH % 19.3 % (20.0-51.0); MEAN CELL VOLUME 92 fl (80.0-100.0); MEAN CORPUSCULAR HEMOGLOBIN 29 pg (27.0-31.0); MEAN CORPUSCULAR HGB CONC 31 g/dl (33.0-37.0); MONO # 0.8 (0.1-0.6); MONO % 10.3 % (1.7-9.3); PLATELET COUNT 241 K/mm3 (130-400)
[2018-03-29 06:15] LABS: HEMATOCRIT 33.9 % (42.0-52.0)
[2018-03-29 06:20] LABS: CALCIUM 7.7 mg/dL (8.4-10.2); CREATININE, serum 1.29 mg/dL (0.66-1.25)
[2018-03-29 07:58] VITALS: BP 149/67; PULSE 73; TEMP 97.9
--- NOTE | 2018-03-29 09:08 | NUR ---
Pt is awake and A/Ox4, sitting up in bed. Pt denies pain or discomfort at this time. He remains on 3L O2 per NC, resp. are even and unlabored. Chest tube to left chest remains to water seal, small amount of pink drainage noted. Dressing is CDI. Pt is up with SBA in room. Denies any needs at this time, will monitor.
[2018-03-29 11:28] VITALS: BP 144/63; PULSE 72; TEMP 98.7
[2018-03-29 15:52] VITALS: BP 148/65; PULSE 73; TEMP 98
--- NOTE | 2018-03-29 19:17 | NUR ---
Resting in recliner. Denies needs. Call light in reach.
[2018-03-29 19:43] VITALS: BP 135/59; PULSE 70; TEMP 98.3
--- NOTE | 2018-03-29 21:29 | NUR ---
Resting in bed. Assessment complete. Left lung campos diminished. Edema present in bilateral lower legs. Reports 6/10 pain in "chest tube area." Provided PRN norco. Chest tube to water seal. Denies needs at this time. Will monitor.
[2018-03-30] VITALS (7 sets, daily range): BP systolic 143–154; BP diastolic 54–69; PULSE 65–69; TEMP 97.8–98.5
--- NOTE | 2018-03-30 00:30 | NUR ---
Resting in bed. Call light in reach.
--- NOTE | 2018-03-30 04:30 | NUR ---
Resting in bed asleep. Call light in reach.
[2018-03-30 06:18] LABS: BASO # 0.1 (0.0-0.2); BASO % 0.8 % (0.0-2.0); EOS # 0.2 (0.0-0.7); EOS % 2.3 % (0-4.0); GRAN % 66.8 % (42.2-75.2); HEMOGLOBIN 10.5 g/dl (13.5-18.0); LYMPH # 1.4 (1.2-3.4); LYMPH % 19.3 % (20.0-51.0); MEAN CELL VOLUME 92 fl (80.0-100.0); MEAN CORPUSCULAR HEMOGLOBIN 29 pg (27.0-31.0); MEAN CORPUSCULAR HGB CONC 31 g/dl (33.0-37.0); MEAN PLATELET VOLUME 10.8 fl (7.4-10.4); MONO # 0.7 (0.1-0.6); MONO % 9.9 % (1.7-9.3); PLATELET COUNT 252 K/mm3 (130-400); RED BLOOD COUNT 3.66 M/mm3 (4.20-5.60)
[2018-03-30 06:30] LABS: CALCIUM 7.7 mg/dL (8.4-10.2); CREATININE, serum 1.29 mg/dL (0.66-1.25); POTASSIUM 4.2 mmol/L (3.4-5.0)
[2018-03-30 06:33] LABS: HEMATOCRIT 33.8 % (42.0-52.0)
--- NOTE | 2018-03-30 06:33 | NUR ---
Uneventful night. Resting in bed asleep this AM. Call light in reach.
--- NOTE | 2018-03-30 08:00 | NUR ---
Patient is alert and oriented, sitting up in bed. Denies need for pain medication at this time. PICC flushes well. Chest tube to water seal. Patient denies SOB, O2 applied. Remains NPO for procedures today. VSS. Call light within reach and will continue to monitor.
--- NOTE | 2018-03-30 14:27 | NUR ---
Patient is sitting up in chair with at bedside. Chest tube to waterseal. Denies pain. Denies SOB on 3L of O2. Consent for thoracentesis signed and on chart. VSS. Call light within reach and report given to VENKATA Ulrich.
[2018-03-30 17:39] LABS: GLUCOSE,PLEURAL FLUID 116 mg/dL; TOTAL PROTEIN,PLEURAL FLUID 4.5 gm/dL
[2018-03-30 17:44] LABS: PLEURAL FLUID RBC 137000 /mm3 (0-0); PLEURAL FLUID WBC 749 /mm3
[2018-03-30 17:46] LABS: PLEURAL FLUID APPEARANCE HAZY; PLEURAL FLUID COLOR RED
--- NOTE | 2018-03-30 17:56 | NUR ---
Patient has returned from thoracentesis. Bandaid intact to left upper back. Chest tube remains to DD, dressing intact to left chest. bloody draiange noted to canister. O2 humidified at 3L. He reports some sob today, dyspnea on exertion. Picc to RUE antibioitc per orders. Patient ordered dinner denies nausea, blood glucose stable. Will report off to night nurse
--- NOTE | 2018-03-30 19:05 | NUR ---
Resting in bed. Denies needs. Denies pain. Call light in reach.
--- NOTE | 2018-03-30 19:42 | NUR ---
Resting in bed watching TV. Assessment complete. Left lower lobe crackles. All other campos clear. Chest tube to water seal. Thoarcentesis site covered with bandaide. Bilateral lower leg edema +1. Denies needs at this time. Call light in reach.
--- NOTE | 2018-03-30 22:20 | NUR ---
Reports 06/29 at chest tube insertion site. Provided PRN norco at patient request. Denies other needs. Call light in reach.
--- NOTE | 2018-03-31 01:30 | NUR ---
Resting in bed asleep. Call light in reach.
[2018-03-31 03:02] VITALS: BP 152/64; PULSE 64; TEMP 97.6
--- NOTE | 2018-03-31 04:20 | NUR ---
Requested PRN norco for 5/10 pain in left side. Provided to patient. Denies other needs. Call light in reach.
--- NOTE | 2018-03-31 06:10 | NUR ---
Uneventful night. Requested PRN norco for pain. Denies needs. Call light in reach.
[2018-03-31 06:41] LABS: BASO # 0.1 (0.0-0.2); BASO % 0.7 % (0.0-2.0); EOS # 0.2 (0.0-0.7); EOS % 2.4 % (0-4.0); GRAN # 4.7 (1.4-6.5); GRAN % 66.8 % (42.2-75.2); HEMOGLOBIN 10.1 g/dl (13.5-18.0); LYMPH # 1.4 (1.2-3.4); LYMPH % 19.6 % (20.0-51.0); MEAN CELL VOLUME 93 fl (80.0-100.0); MEAN CORPUSCULAR HEMOGLOBIN 29 pg (27.0-31.0); MEAN CORPUSCULAR HGB CONC 31 g/dl (33.0-37.0); MEAN PLATELET VOLUME 11.3 fl (7.4-10.4); MONO # 0.7 (0.1-0.6); MONO % 10.1 % (1.7-9.3); PLATELET COUNT 255 K/mm3 (130-400); RED BLOOD COUNT 3.53 M/mm3 (4.20-5.60)
[2018-03-31 06:45] LABS: CALCIUM 7.8 mg/dL (8.4-10.2); CREATININE, serum 1.27 mg/dL (0.66-1.25); HEMATOCRIT 32.8 % (42.0-52.0); POTASSIUM 4.3 mmol/L (3.4-5.0)
--- NOTE | 2018-03-31 06:59 | NUR ---
Report given to VENKATA Gooden.
--- NOTE | 2018-03-31 07:00 | NUR ---
Pt is awake and A/Ox4, sitting up in bed. Pt denies pain or discomfort at this time, stating the pain pill given by night nurse is working. PICC to right upper is free of complications. Resp. are even and unlabored at rest. Pt remains on 2.5L O2 per NC. Left sided chest tube to water-seal remains free of complications, dressing is CDI. Pt is up as tolerated in room. Denies any other needs.
[2018-03-31 07:46] VITALS: BP 155/69; PULSE 64; TEMP 98.4
--- NOTE | 2018-03-31 09:49 | NUR ---
SW attended clinical rounds. The patient is to have a VATS decortication tomorrow, 04/01. SW to continue to follow.
[2018-03-31 11:49] VITALS: BP 149/61; PULSE 73; TEMP 98.4
[2018-03-31 15:39] VITALS: BP 153/67; PULSE 66; TEMP 97.5
--- NOTE | 2018-03-31 18:13 | NUR ---
Pt has had an overall uneventful shift. Pain to chest tube site has been well controlled with PRN norco. Pt denies any other needs. Consent for tomorrows thorascopy was signed and on chart.
[2018-03-31 18:43] VITALS: BP 162/67; PULSE 66; TEMP 97.6
--- NOTE | 2018-03-31 20:00 | NUR ---
PT RESTING IN BED. RECIEVED REPORT FROM GRIS HASTINGS. HAVING CHEST TUBE SITE PAIN. MINIMAL OLD BLOODY DRAINAGE IN PLEUROVAC TO WATERSEAL. APPEARS IT HAS BEEN TIPPED AT SOME POINT. MINMAL DRG NOTED. O2 2.5L NC. VOIDING PER URINAL W/O DIFFICULTY.
[2018-03-31 23:23] VITALS: BP 156/68; PULSE 66; TEMP 97.3
[2018-04-01] VITALS (85 sets, daily range): BP systolic 144–185; BP diastolic 60–85; PULSE 66–84; TEMP 97.8–98.3; O2SAT 91–97
--- NOTE | 2018-04-01 | NUR ---
NPO AT MIDNIGHT. SEE MAR FOR PAIN MED GIVEN.
[2018-04-01 05:58] LABS: BASO # 0.1 (0.0-0.2); BASO % 1.2 % (0.0-2.0); EOS # 0.2 (0.0-0.7); EOS % 3.2 % (0-4.0); GRAN # 4.5 (1.4-6.5); GRAN % 65.4 % (42.2-75.2); HEMOGLOBIN 10.2 g/dl (13.5-18.0); LYMPH # 1.3 (1.2-3.4); LYMPH % 19.5 % (20.0-51.0); MEAN CELL VOLUME 92 fl (80.0-100.0); MEAN CORPUSCULAR HEMOGLOBIN 29 pg (27.0-31.0); MEAN CORPUSCULAR HGB CONC 31 g/dl (33.0-37.0); MEAN PLATELET VOLUME 10.8 fl (7.4-10.4); MONO # 0.7 (0.1-0.6); MONO % 10.1 % (1.7-9.3); PLATELET COUNT 268 K/mm3 (130-400); RED BLOOD COUNT 3.58 M/mm3 (4.20-5.60); REDCELL DISTRIBUTION WIDTH-CV 13.7 % (11.5-14.5)
[2018-04-01 06:19] LABS: CALCIUM 7.9 mg/dL (8.4-10.2); CREATININE, serum 1.18 mg/dL (0.66-1.25); POTASSIUM 4.1 mmol/L (3.4-5.0)
--- NOTE | 2018-04-01 06:20 | NUR ---
PT HAS HAD GOOD PAIN RELIEF WITH NORCO THROUGH THE NIGHT. PT TOOK SIPS WITH PASTEURISER OPERATOR MEDS OTHERWISE NPO SINCE MIDNIGHT.
--- NOTE | 2018-04-01 08:19 | NUR ---
Pt resting in bed with call light within reach. Chest tube intact to left chest. PICC line to right upper arm, flushes with blood return. Call placed to anesthesia, clarified to give cardizem, cordarone, and toprol and hold other morning medications. Consent for procedure has already been signed. Pt states his will be in shortly. Denies further needs at this time.
--- NOTE | 2018-04-01 08:58 | NUR ---
Pt to OR. at bedside.
--- NOTE | 2018-04-01 11:37 | NUR ---
Report given to VENKATA Posada on surgical where patient will go post procedure.
--- NOTE | 2018-04-01 12:07 | NUR ---
Pt will now go to ICU post procedure; report given to VENKATA Varela.
--- NOTE | 2018-04-01 12:21 | NUR ---
REPORT RECEIVED FROM CHAPARRITA IN PACU.
--- NOTE | 2018-04-01 12:24 | NUR ---
PT BROUGHT FROM PACU VIA BED BY CHAPARRITA CLERK OPERATOR. PT AWAKE, SLIGHTLY DROWSY BUT ARSOUSABLE. PT ON BIPAP AT 60% FIO2. CHEST TUBE TO WATER SEAL, SET UP TO SUCTION ONCE TRANSFERRED TO ICU ROOM 8. PT SLOW TO ANSWER QUESTIONS BUT ANSWERS APPROPRIATELY. PT HAS BLOODY DRAINAGE SHADOW NOTED TO LEFT CHEST DRESSING. PT HAS LEFT RADIAL ART LINE IN PLACE. 500ML BAG NS INSERTED INTO PRESSURE BAG. BAG EXCHANGED FOR 1000ML NS BAG BY MYSELF. ART LINE POSITIONAL AND DOES NOT CORRELATE WITH BP CUFF. BP CUFF READING 149/77, ART LINE READING 199/77. PT HEART RATE 69BPM, RESPIRATIONS 16. O2 SAT 94% ON BIPAP AT 60% FIO2. BIPAP SET AT 20/5, BACKUP 16. DR TIWARI PRESENT UPON PT'S TRANSFER TO ICU.
[2018-04-01 12:46] LABS: ARTERIAL BLD GAS O2 SATURATION 93.4 % (92-100); ARTERIAL BLD GAS TCO2 CT 32.9; ARTERIAL BLOOD GAS BASE EXCESS 4.8 (-2-2); ARTERIAL BLOOD GAS HCO3 31.2 meq/L (22-26); ARTERIAL BLOOD GAS PCO2 54.8 mmHg (35-45); ARTERIAL BLOOD GAS PO2 71.3 mmHg (80-100); ARTERIAL BLOOD GAS pH 7.37 (7.35-7.45)
--- NOTE | 2018-04-01 14:25 | NUR ---
AWAITING DILAUDID SYRINGE TO INITIATE FASHION MARKETER
[2018-04-01 16:38] LABS: ARTERIAL BLD GAS O2 SATURATION 95.6 % (92-100); ARTERIAL BLD GAS TCO2 CT 31.2; ARTERIAL BLOOD GAS BASE EXCESS 3.7 (-2-2); ARTERIAL BLOOD GAS HCO3 29.6 meq/L (22-26); ARTERIAL BLOOD GAS PCO2 51.1 mmHg (35-45); ARTERIAL BLOOD GAS PO2 85.6 mmHg (80-100); ARTERIAL BLOOD GAS pH 7.38 (7.35-7.45)
[2018-04-01 16:43] LABS: BASO % 0.1 % (0.0-2.0); GRAN # 8.9 (1.4-6.5); GRAN % 95.1 % (42.2-75.2); HEMOGLOBIN 10.8 g/dl (13.5-18.0); LYMPH # 0.3 (1.2-3.4); MEAN CELL VOLUME 92 fl (80.0-100.0); MEAN CORPUSCULAR HEMOGLOBIN 29 pg (27.0-31.0); MEAN CORPUSCULAR HGB CONC 31 g/dl (33.0-37.0); MEAN PLATELET VOLUME 10.2 fl (7.4-10.4); MONO # 0.1 (0.1-0.6); MONO % 1.2 % (1.7-9.3); PLATELET COUNT 277 K/mm3 (130-400); RED BLOOD COUNT 3.73 M/mm3 (4.20-5.60); REDCELL DISTRIBUTION WIDTH-CV 13.6 % (11.5-14.5)
[2018-04-01 16:45] LABS: HEMATOCRIT 34.4 % (42.0-52.0)
--- NOTE | 2018-04-01 16:50 | NUR ---
placed pt on 4 lpm oxymask. 93% spo2. bipap on standby
[2018-04-01 16:54] LABS: CALCIUM 7.8 mg/dL (8.4-10.2); CREATININE, serum 1.16 mg/dL (0.66-1.25); PHOSPHOROUS 4.7 mg/dL (2.5-4.5); POTASSIUM 4.7 mmol/L (3.4-5.0)
--- NOTE | 2018-04-01 19:20 | NUR ---
Bedside report received from VENKATA Varela. Medications and lines reviewed. Transfer of care at this time.
--- NOTE | 2018-04-01 20:00 | NUR ---
Assessment complete at this time. Patient is resting in bed comfortably. Rates pain 4/10 and states that the CONSUMER LOAN UNDERWRITER is working for him. Patient is a little bit drowsy, but awakens on his own. Patient is alert and oriented and follows commands. Chest tube monitored. Site is clean and dry. No further needs at this time. Will continue to monitor. Call light within reeach.
[2018-04-02] VITALS (788 sets, daily range): BP systolic 152–172; BP diastolic 61–85; PULSE 67–77; TEMP 97.7–98.4; O2SAT 77–99
--- NOTE | 2018-04-02 | NUR ---
Assessment complete. RT Sher here at this time to place patient on BiPAP for sleep. Educated patient on why he needs the BiPAP and the importance of it in regards to his ABG's and healing from the VATS procedure. Patient agreed to be put on BiPAP. Requested to take his contacts out prior, assisted with removal of contacts and placed in labeled containers in room. Patient's chest tube dressing remains clean, dry, and intact. Chest tube is draining freely. Continues to have a moderate amount of red fluid. Patient has no further needs at this time. Will continue to monitor. Call light within reach.
--- NOTE | 2018-04-02 04:00 | NUR ---
Assessment complete. Patient resting in bed on BiPAP. Has been tolerating well for 4 hours. Patient is requesting a sip of water, provided and BiPAP replaced. Patient's chest tube dressing remains clean and dry. Slightly less output from chest tube than earlier in the shift. Patient is currently rating pain a 5/10 because he has been asleep and not pressed his BIN PACKER button. Patient has no further needs at this time. Will continue to monitor. Call light within reach.
[2018-04-02 05:40] LABS: BASO % 0.1 % (0.0-2.0); GRAN # 7.7 (1.4-6.5); GRAN % 85.6 % (42.2-75.2); LYMPH # 0.7 (1.2-3.4); LYMPH % 7.2 % (20.0-51.0); MEAN CELL VOLUME 92 fl (80.0-100.0); MEAN CORPUSCULAR HGB CONC 31 g/dl (33.0-37.0); MEAN PLATELET VOLUME 10.6 fl (7.4-10.4); MONO # 0.6 (0.1-0.6); MONO % 6.5 % (1.7-9.3); PLATELET COUNT 283 K/mm3 (130-400); RED BLOOD COUNT 3.46 M/mm3 (4.20-5.60); REDCELL DISTRIBUTION WIDTH-CV 13.5 % (11.5-14.5)
[2018-04-02 05:44] LABS: HEMATOCRIT 31.9 % (42.0-52.0); HEMOGLOBIN 9.8 g/dl (13.5-18.0); MEAN CORPUSCULAR HEMOGLOBIN 28 pg (27.0-31.0)
--- NOTE | 2018-04-02 05:45 | NUR ---
PT TAKEN OFF BIPAP. TARA WELL ALL NIGHT AND IS NOW ON 5LPM OM WITH SAT AT 98% WILL CONTINUE TO MONITOR, NO DISTRESS NOTED AT THIS TIME
[2018-04-02 05:51] LABS: ALBUMIN 2.8 gm/dL (3.5-5.0); BILIRUBIN,TOTAL 0.3 mg/dL (0.0-1.0); CALCIUM 7.8 mg/dL (8.4-10.2); CREATININE, serum 1.23 mg/dL (0.66-1.25); POTASSIUM 5.3 mmol/L (3.4-5.0); TOTAL PROTEIN 6.4 gm/dL (6.4-8.2)
--- NOTE | 2018-04-02 07:24 | NUR ---
Bedside report given to VENKATA Carranza. Lines and chest tube reviewed. No further questions. Transfer of care at this time.
--- NOTE | 2018-04-02 08:17 | NUR ---
INITIAL ASSESSMENT COMPLETED. PATIENT AWAKE AND CALM IN ROOM. BIPAP IS CURRENTLY ON. HE STATES THE DILAUDID FURNITURE FABRICATOR SEEMS TO BE TAKING CARE OF MOST OF HIS PAIN. HE DOES NOTE SLIGHT PAIN, BUT STATES HE DOESN'T NEED ANYTHING FOR IT.
--- NOTE | 2018-04-02 09:00 | NUR ---
PATIENT REQUESTED TO BE TAKEN OFF BIPAP. HE WAS PLACED ON 7L OXYMASK. HIS 02 SATS CONSISTENTLY STAYED AROUND 89%. RESPIRATORY CALLED AND WE DECIDED TO TRY A HIGH FLOW NASAL CANULA AT 10 L.
--- NOTE | 2018-04-02 09:15 | NUR ---
PT PLACED ON HFNC AT THIS TIME TO EAT. PT TOLERATING WELL, SPO2 87-90%. ETCO2 NOT ON DUE TO PT REQUIRING HIGH FLOW CANNULA. PT WILL RETURN TO BIPAP SOON. WILL CONTINUE TO MONITOR.
--- NOTE | 2018-04-02 12:00 | NUR ---
ARTERIAL LINE WAS REMOVED FROM PATIENT'S LEFT WRIST. PRESSURE WAS APPLIED AND THEN COVERED WITH A PIECE OF GAUZE AND TEGADERM.
--- NOTE | 2018-04-02 16:42 | NUR ---
PATIENT WAS ASSISTED WITH GETTING CLEANED UP THIS AFTERNOON. NEW EKG PATCHES APPLIED WELL A NEW PULSE OXIMETER.
--- NOTE | 2018-04-02 19:00 | NUR ---
Report given to VENKATA Chirinos.
--- NOTE | 2018-04-02 20:00 | NUR ---
Shift assessment complete at this time. Plan of care reviewed at bedside with patient. Additional time taken to address any other needs or concerns. Vitals stable at this time. Reports tolerable pain being managed effectively by Dilaudid TECHNICIAN BIOLOGICAL HEALTH. Will continue to monitor.
[2018-04-03] VITALS (627 sets, daily range): BP systolic 144–169; BP diastolic 66–84; PULSE 61–76; TEMP 97.5–98.6; O2SAT 82–100
--- NOTE | 2018-04-03 | NUR ---
Shift reassessment complete at this time. No changes from previous assessment. Vitals stable at this time. Pt reports tolerable pain near chest tube site that is being effectively managed by Dilaudid LEATHER ROLLER. Will continue to monitor.
--- NOTE | 2018-04-03 04:00 | NUR ---
Shift reassessment complete at this time. No changes from previous assessment. Vitals stable. Reports tolerable pain near chest tube site that is being adequately managed by Diluadid TON CONTAINER SHIPPER. Will continue to monitor.
[2018-04-03 05:35] LABS: MEAN CELL VOLUME 94 fl (80.0-100.0); MEAN CORPUSCULAR HGB CONC 31 g/dl (33.0-37.0); MEAN PLATELET VOLUME 10.1 fl (7.4-10.4); PLATELET COUNT 279 K/mm3 (130-400); RED BLOOD COUNT 3.31 M/mm3 (4.20-5.60); REDCELL DISTRIBUTION WIDTH-CV 13.8 % (11.5-14.5)
[2018-04-03 05:37] LABS: HEMATOCRIT 31.1 % (42.0-52.0); HEMOGLOBIN 9.7 g/dl (13.5-18.0); MEAN CORPUSCULAR HEMOGLOBIN 29 pg (27.0-31.0)
[2018-04-03 05:50] LABS: CALCIUM 7.8 mg/dL (8.4-10.2); CREATININE, serum 1.19 mg/dL (0.66-1.25); POTASSIUM 4.6 mmol/L (3.4-5.0)
--- NOTE | 2018-04-03 07:20 | NUR ---
BEDSIDE REPORT RECEIVED FROM VENKATA QUILES. PATIENT CURRENTLY SITTING UP IN BED WITH NO COMPLAINTS. CHEST TUBE EVALUATED. CURRENTLY TO 20 CM SUCTION, BUBBLING NOTED IN CHAMBER. DRESSING HAS SOME DRAINAGE, BUT INTACT. PATIENT CURRENTLY ON 6L O2 VIA OXYMASK. PLAN OF CARE DISCUSSED. CARE TAKEN OVER AT THIS TIME.
--- NOTE | 2018-04-03 07:26 | NUR ---
Bedside report given to VENKATA Fitch.
--- NOTE | 2018-04-03 11:03 | NUR ---
O2 WEANED DOWN TO 4L O2 AT 1015 AM. PATIENT HAS MAINTAINED SPO2 OF 93% SINCE THEN. HE IS CURRENTLY SITTING UP IN RECLINER WITH CHEST TUBE TO WATERSEAL. WILL CONTINUE TO MONITOR.
--- NOTE | 2018-04-03 11:47 | NUR ---
DR. BARRIOS ROUNDS AT THIS TIME
--- NOTE | 2018-04-03 14:49 | NUR ---
PT BROUGHT FROM ICU TO SURGICAL ROOM 342 VIA WHEELCHAIR BY DEBORAH HASTINGS. PT AMBULATED WITH STANDBY ASSISTANCE TO BED. PLEURAVAC AT WATER SEAL FOR TRANSFER AND THEN 20CM SUCTION RESUMED. PT ON 4L NC. PT COOPERATIVE AND PLEASANT. AT BEDSIDE. DILAUDID IT CORPORATE RECRUITER TRANSFERRED WITH PT. PT AND DENIES ANY NEEDS AT THIS TIME.
--- NOTE | 2018-04-03 22:30 | NUR ---
PT NOT USING SAND POLISHER SO SAND POLISHER TURNED OFF. PT INFORMED SAND POLISHER WOULD BE RESTARTED IF NORCO DID NOT CONTROL HIS PAIN.
[2018-04-04 05:30] VITALS: BP 151/65; PULSE 65; TEMP 97.5
--- NOTE | 2018-04-04 06:00 | NUR ---
PT IN BED. NORCO FOR PAIN TO CHEST TUBE SITE. NO NOTABLE DYSPNEA AT REST. LEFT LOWER LUNG FIELD DIMINISHED.
--- NOTE | 2018-04-04 08:50 | NUR ---
PICC intact right upper arm. With sterile technique right upper arm PICC dressing change done with insertion site cleansed with ChloraPrep 1, skin prep, StatLock, and Tegaderm applied. Right hand slightly swollen. Toño removed. No other signs or symptoms of IV complications noted. No concerns voiced. We'll continue to monitor.
[2018-04-04 08:55] VITALS: BP 162/63; PULSE 82; TEMP 98.3
[2018-04-04 12:45] VITALS: BP 155/67; PULSE 74; TEMP 98.5
[2018-04-04 16:00] VITALS: BP 179/70; PULSE 69; TEMP 97.3
--- NOTE | 2018-04-04 18:00 | NUR ---
Patient seems to be feeling better today. Dr Frost removed one of the chest tubes today. Patient has been sitting up in the chair most the afternoon. He did not get walk with PT today because everytime they came something else was happening. Offered to walk with him this afternoon but he wanted to wait until his family left. No other changes at this time. Call light within reach.
[2018-04-04 19:16] VITALS: BP 180/74; PULSE 72; TEMP 97.7
--- NOTE | 2018-04-04 21:50 | NUR ---
Pt in bed napping, easily aroused from sleep, shift assessments complete, left Pt call light in reach, bed in lowest position.
[2018-04-04 23:18] VITALS: BP 166/70; PULSE 71; TEMP 98
[2018-04-05 03:21] VITALS: BP 162/81; PULSE 68; TEMP 98.5
--- NOTE | 2018-04-05 05:21 | NUR ---
Pt slept well during the night, he did wear the BIPAP while sleeping without issue, Pt has not had any C/O pain during the shift, VS have remained stable .
[2018-04-05 06:28] LABS: BASO % 0.4 % (0.0-2.0); EOS # 0.2 (0.0-0.7); EOS % 2.1 % (0-4.0); GRAN # 5.7 (1.4-6.5); GRAN % 71.9 % (42.2-75.2); LYMPH # 1.2 (1.2-3.4); LYMPH % 14.4 % (20.0-51.0); MEAN CELL VOLUME 91 fl (80.0-100.0); MEAN CORPUSCULAR HGB CONC 32 g/dl (33.0-37.0); MEAN PLATELET VOLUME 10.3 fl (7.4-10.4); MONO # 0.8 (0.1-0.6); MONO % 10.1 % (1.7-9.3); PLATELET COUNT 235 K/mm3 (130-400); RED BLOOD COUNT 3.36 M/mm3 (4.20-5.60); REDCELL DISTRIBUTION WIDTH-CV 13.7 % (11.5-14.5)
[2018-04-05 06:33] LABS: HEMATOCRIT 30.6 % (42.0-52.0); HEMOGLOBIN 9.7 g/dl (13.5-18.0); MEAN CORPUSCULAR HEMOGLOBIN 29 pg (27.0-31.0)
[2018-04-05 06:50] LABS: CALCIUM 8.2 mg/dL (8.4-10.2); CREATININE, serum 0.97 mg/dL (0.66-1.25); POTASSIUM 3.8 mmol/L (3.4-5.0)
[2018-04-05 07:39] VITALS: BP 172/73; PULSE 74; TEMP 97.5
--- NOTE | 2018-04-05 08:26 | NUR ---
Patient sitting up in bed. he has had breakfast. did not require insulin. he is alert & oriented. request a pain pill for pain at chest tube site. Patient chest tube to DD. Dr. Frost notifed this am & lovenox held for anticipation of chest tube removal this afternoon. Patient reports a sore bottom, activity encouraged. Patient took all am meds his Bp is elevated, o2 sats stable in 5l. Will monitor
--- NOTE | 2018-04-05 09:38 | NUR ---
Patient up and ambulated halls with therapy. hospitalist team rounded.
[2018-04-05 12:17] VITALS: BP 132/67; PULSE 69; TEMP 99
--- NOTE | 2018-04-05 13:57 | NUR ---
Patient sitting up in chair. Family at bedside. They brought in lunch for him, he continues to have minimal appetite, reports nothing taste good. Insulin per sliding scale. He continues to be on O2 per needs, but overall reports feeling better.
[2018-04-05 15:43] VITALS: BP 169/72; PULSE 70; TEMP 98
--- NOTE | 2018-04-05 17:52 | NUR ---
Patient resting in bed. Dr. Frost rounded & chest tube was removed. Patient tolerated fairly well. One tab norco was given for pain management. Dinner ordered, insulin per orders. Picc int. Will report off to nightshift nurse
--- NOTE | 2018-04-05 19:06 | NUR ---
Patient sitting back up in chair. He ate a small amount of dinner. Reenforced Chest tube removal site dressing. report to nilsa HASTINGS
[2018-04-05 19:45] VITALS: BP 193/79; PULSE 77; TEMP 98.6
--- NOTE | 2018-04-05 20:00 | NUR ---
Patient up in chair. Alert and oriented x 3. Shift assessment complete. Dressing to left chest CDI. Denies pain at this time. Abrasion to buttock noted. Edema to BLE +2 pitting. Edema to right hand noted. PICC to HECTOR. Denies further needs at this time.
[2018-04-05 22:30] VITALS: BP 174/71; PULSE 67; TEMP 98.2
[2018-04-06 03:44] VITALS: BP 175/91; PULSE 76; TEMP 98
--- NOTE | 2018-04-06 05:31 | NUR ---
Patient has rested well through the night. Minimal needs. Refuses Bipap on through the night. Denies pain at this time. Denies further needs at this time. Will report off to day shift.
[2018-04-06 07:38] VITALS: BP 171/76; PULSE 76; TEMP 99
--- NOTE | 2018-04-06 09:16 | NUR ---
Patient sitting up in the chair. Patient up to the bathroom this am & able to have a small BM. Hospitalist team aware of elevated BP & cozaar started. Assessment completed. Will monitor.
--- NOTE | 2018-04-06 10:47 | NUR ---
Patient sitting up in chair. Hospitalist team rounding. Dr. Melara rounded & reviewed Chest xray. He will speak to ID about antibioitcs. Patient overall in good spirits & possibility of discharge today.
[2018-04-06] MEDS ORDERED: ELIQUIS 5MG PO (10:57)
[2018-04-06] MEDS ORDERED: CORDARONE200 MG/TAB PO (10:57)
[2018-04-06] MEDS ORDERED: NITROSTAT0.4 MG/TAB SL (10:58)
[2018-04-06] MEDS ORDERED: APRESOLINE 25MG25 MG PO (10:58)
[2018-04-06] MEDS ORDERED: CARDIZEM CD 12120 MG PO (10:58)
[2018-04-06] MEDS ORDERED: DEEP SEA 45 ML45 ML NS (10:59)
[2018-04-06] MEDS ORDERED: GLUCOPHAGE500 MG/TAB PO (11:00)
[2018-04-06] MEDS ORDERED: NORCO 325 MG-51 TAB PO (11:01)
[2018-04-06] MEDS ORDERED: PROAIR HFA0.09 MG/AC IH (11:11)
[2018-04-06 11:16] VITALS: BP 170/68; PULSE 66; TEMP 98.6
[2018-04-06] MEDS ORDERED: LEVAQUIN 5500 MG/TA1 PO (11:17)
--- NOTE | 2018-04-06 14:06 | NUR ---
PT AT REST REQUIRES 3.5L IN ORDER TO KEEP SPO2 GREATER THAN 88%. PT WILL REQUIRE O2 UPON D/C.
--- NOTE | 2018-04-06 15:50 | NUR ---
The patient qualified for home oxygen and was in need of a front wheeled walker. SAMI met with the patient and patient's family to discuss DME options. The patient and patient's were agreeable to receive the oxygen through the [employer] company, [employer], due to them traveling back to [place] around 04/16. SAMI contacted and faxed the oxygen order to Rajwinder at [employer]. Rajwinder reports that the patient's insurance will not cover the oxygen and that it would be private pay. SAMI informed the patient and patient's and they report they are agreeable to private pay. Rajwinder reports that they will then transfer the patient to the [facility] in [place], [place] once the patient returns home. [employer] will provide the patient with enough oxygen tanks to return home. Rajwinder reports that they will be delivering all the patient's equipment to his room today, 04/06. SAMI also discussed DME companies for the walker. The patient and patient's preferred [facility]. SAMI contacted and faxed the patient's walker order to [facility]. The walker was delivered to the patient's room. The patient is to discharge to his son-in-law's home in [place] today, 04/06. SAMI presented and explained the IM form to the patient's . The patient's verbalized understanding, signed, and she was provided a copy. No additional needs at this time.
[2018-04-06 16:09] VITALS: BP 153/79; PULSE 65; TEMP 98.1
--- NOTE | 2018-04-06 17:24 | NUR ---
Patient ready for discharge. Patient home walker delivered. Patient home o2 delivered by [employer], they explained everyhting to patient and family. Picc was removed by Liliana HASTINGS. Reviewed with patient all follow up appt. We reviewed follow up labs & chest xray. We reviewed med list in depth, including stopped meds, new meds to be picked up at [facility], & prior home meds. Script fot [place] sent with patient. We reviewed signs & symptoms of infections, when to call the doctor. Patient has a very supportive family. Patient assisted to get dressed. Patient wheeled out with all belongings, his and son taking him to [place]. Deny questions or cocnerns.
== END 2018-04-06 17:27 | disposition home or self-care (01) | DRG 853 ==
LOC: COL.ER 14:24 → MEDICAL 15:08 → ICU 15:08 → MEDICAL 03-17 15:28 → ICU 03-20 05:19 → MEDICAL 03-20 05:19 → ICU 03-20 05:19 → SURG 03-22 18:46 → ICU 03-22 18:46 → SURG 03-22 19:00 → MEDICAL 03-23 20:19 → SURG 04-01 11:31 → ICU 04-01 13:35 → SURG 04-03 14:46
PROVIDERS: Emergency Medicine; Internal Medicine; Internal Medicine Cardiovascular Disease; Internal Medicine Critical Care Medicine; Internal Medicine Pulmonary Disease; Nurse Practitioner Family; Physician Assistant; ADMIT Hospitalist
PROC: 5A2204Z Restoration of Cardiac Rhythm, Single (ICD-10-PCS; 2018-03-18)
PROC: B2111ZZ Fluoroscopy of Multiple Coronary Arteries using Low Osmolar Contrast (ICD-10-PCS; 2018-03-18)
PROC: B2151ZZ Fluoroscopy of Left Heart using Low Osmolar Contrast (ICD-10-PCS; 2018-03-18)
PROC: 4A023N7 Measurement of Cardiac Sampling and Pressure, Left Heart, Percutaneous Approach (ICD-10-PCS; 2018-03-18)
PROC: 5A2204Z Restoration of Cardiac Rhythm, Single (ICD-10-PCS; 2018-03-21)
PROC: 0W9B00Z Drainage of Left Pleural Cavity with Drainage Device, Open Approach (ICD-10-PCS; 2018-03-25)
PROC: 0W9B3ZX Drainage of Left Pleural Cavity, Percutaneous Approach, Diagnostic (ICD-10-PCS; principal; 2018-03-30)
PROC: 0BNJ4ZZ Release Left Lower Lung Lobe, Percutaneous Endoscopic Approach (ICD-10-PCS; 2018-04-01)
DX: A40.3 Sepsis due to Streptococcus pneumoniae (principal); J13 Pneumonia due to Streptococcus pneumoniae; I21.A1 Myocardial infarction type 2; J96.01 Acute respiratory failure with hypoxia; J86.9 Pyothorax without fistula; J90 Pleural effusion, not elsewhere classified; N17.9 Acute kidney failure, unspecified; Z68.41 Body mass index [BMI] 40.0-44.9, adult; R04.2 Hemoptysis; E87.4 Mixed disorder of acid-base balance; I42.9 Cardiomyopathy, unspecified; I15.0 Renovascular hypertension; E11.9 Type 2 diabetes mellitus without complications; I48.0 Paroxysmal atrial fibrillation; I25.10 Atherosclerotic heart disease of native coronary artery without angina pectoris; E78.5 Hyperlipidemia, unspecified; E66.01 Morbid (severe) obesity due to excess calories; Z85.46 Personal history of malignant neoplasm of prostate; E87.6 Hypokalemia; E83.42 Hypomagnesemia; E87.70 Fluid overload, unspecified
CPT/HCPCS: 99223-AI; 99231-AI; 99232-AI; 99233-AI; 99239; A4216; A7041; A7048; A9284; A9539; A9540; C1751; C1769; C1887; C1894; G9654; J0282; J0330; J0692; J0696; J1100; J1170; J1644; J1650; J1815; J1940; J2250; J2370; J2405; J2543; J2704; J2930; J3010; J3370; J3475; J3480; J7030; J7040; J7050; J7060; Q9967